=== PATIENT | female | born 1950 | race Caucasian/White ===

== ENCOUNTER → 2017-06-30 | Outpatient (CLI) | payer OTHER ==
[~2017-06-30] VITALS: Ht 157.5 cm; Wt 102.1 kg
[~2017-06-30] MED LIST: ASPIRIN EC325 MG PO; ASPIRIN325 MG PO; CALTRATE 6001 TABLE1 PO; CELEBREX200 MG PO; CLARITIN10 MG PO; CYCLOBENZAPRINE5 MG PO; DILAUDID2 MG PO; DITROPAN XL5 MG PO; EFFEXOR XR150 MG PO; FLONASE16 G1 BOTH NARES; GABAPENTIN300 MG PO; LO-DOSE ASPIRIN81 M1 PO; LOSARTAN POTASS50 MG PO; LYRICA100 MG PO; METHADONE10 MG PO; METOPROLOL SUCC25 MG PO; METOPROLOL SUCC50 MG PO; OMEPRAZOLE40 M1 PO; OXYTROL TRANSD3.9 MG TD; PRISTIQ50 MG PO; SENNA-TIME S T1 EACH PO; ZOLPIDEM TARTRA10 MG PO
== END | disposition home or self-care (01) ==
LOC: AMB 07:54
PROC: 0DB48ZX Excision of Esophagogastric Junction, Via Natural or Artificial Opening Endoscopic, Diagnostic (ICD-10-PCS; principal; 2017-06-30)
DX: K21.9 Gastro-esophageal reflux disease without esophagitis (principal); K44.9 Diaphragmatic hernia without obstruction or gangrene; Z88.5 Allergy status to narcotic agent
CPT/HCPCS: 88305; 93005; J2250; J3010